=== PATIENT | male | born 1980 | race Caucasian/White ===

== ENCOUNTER 2018-07-11 13:59 | Emergency (ER) | payer OTHER ==
[~2018-07-11] VITALS: Ht 172.7 cm; Wt 79.4 kg
[2018-07-11] MEDS ORDERED: B/P MED (14:08)
[2018-07-11] MEDS ORDERED: DICYCLOMINE HCL LIQ 10 MG/5 ML UDC PO ONE (14:15)
[2018-07-11] MEDS ORDERED: MAG HYDROX/AL HYDROX/SIMETH 30 ML LIQUID UDC PO ONE (14:15)
[2018-07-11] MEDS ORDERED: DICYCLOMINE HCL LIQ 10 MG/5 ML UDC ONE (14:19)
[2018-07-11] MEDS ORDERED: MAG HYDROX/AL HYDROX/SIMETH 30 ML LIQUID UDC ONE (14:19)
--- NOTE | 2018-07-11 14:53 | NUR ---
Patient is resting comfortably on gurney. PATIENT IS PAIN FREE AT THIS TIME. Patient discharged to home in stable conditon. Written and verbal after care instructions given to patient. Patient verbalizes understanding of instructions.
== END 2018-07-11 14:54 | disposition home or self-care (01) ==
LOC: ER 13:59
DX: R07.89 Other chest pain (principal)
CPT/HCPCS: 36415; 70030-TC; 93005; A4663

== ENCOUNTER 2018-10-07 12:20 | Emergency (ER) | payer OTHER ==
[~2018-10-07] VITALS: Ht 170.2 cm; Wt 81.6 kg
[~2018-10-07 12:20] MED LIST: B/P MED
--- NOTE | 2018-10-07 12:50 | NUR ---
PT IS IN ROOM #2B. DR PATTEN EVALUATED THE PT.
[2018-10-07 12:59] LABS: BASOPHILS # (AUTO) 0.1 K/uL (0.0-8.0); BASOPHILS % (AUTO) 0.6 % (0.0-2.0); EOSINOPHILS # (AUTO) 0.1 K/uL (0.0-0.7); EOSINOPHILS % (AUTO) 1.5 % (0.0-7.0); HEMATOCRIT 47.9 % (36.7-47.1); HEMOGLOBIN 16.6 g/dL (12.5-16.3); LYMPHOCYTES # (AUTO) 3.3 K/uL (20.0-40.0); MEAN CORPUSCULAR HEMOGLOBIN 28.9 uug (23.8-33.4); MEAN CORPUSCULAR HGB CONC 35 g/dL (32.5-36.3); MEAN CORPUSCULAR VOLUME 83.4 fL (73.0-96.2); MONOCYTES # (AUTO) 0.7 K/uL (2.0-10.0); MONOCYTES % (AUTO) 7.7 % (0.0-11.0); NEUTROPHILS # (AUTO) 5.2 K/uL (1.8-8.9); NEUTROPHILS % (AUTO) 55.2 % (38.5-71.5); PLATELET COUNT (AUTO) 245 K/uL (152-348); RED BLOOD CELL COUNT(AUTO) 5.74 MIL/uL (4.06-5.63); WHITE BLOOD COUNT (AUTO) 9.3 K/uL (3.6-10.2)
[2018-10-07 13:04] LABS: CREATININE 0.9 mg/dL (0.6-1.3); POTASSIUM 3.8 mmol/L (3.5-5.1)
--- NOTE | 2018-10-07 16:52 | NUR ---
PT WAS D/C'd TO HOME. D/C INSTRUCTIONS GIVEN TO THE PT. PT DENIES PAIN. NO S/S OF ACUTE DISTRESS AT THIS TIME.
[2018-10-07 17:04] VITALS: BP 131/75
== END 2018-10-07 17:06 | disposition home or self-care (01) ==
LOC: ER 12:20
DX: R00.2 Palpitations (principal); R42 Dizziness and giddiness; F17.290 Nicotine dependence, other tobacco product, uncomplicated
CPT/HCPCS: 36415; 70030-TC; 71045; 85025; 93005; A4663

== ENCOUNTER 2020-02-02 18:30 | Emergency (ER) | payer OTHER ==
[~2020-02-02] VITALS: Ht 165.1 cm; Wt 90.7 kg
[2020-02-02] MEDS ORDERED: TETRACAINE HCL 0.5% OPHT DROP 2 ML BOTTLE ONE (18:52)
[2020-02-02] MEDS ORDERED: FLUORESCEIN SODIUM 1 MG STRIP ONE (18:52)
[2020-02-02] MEDS ORDERED: TETRACAINE HCL 0.5% OPHT DROP 2 ML BOTTLE OP ONE (19:15)
[2020-02-02] MEDS ORDERED: FLUORESCEIN SODIUM 1 MG STRIP OP ONE (19:15)
--- NOTE | 2020-02-02 19:31 | NUR ---
PATIENT SEEN BY DR PAZ FOR EYE IRRITATION
[2020-02-02 19:59] VITALS: BP 127/81
--- NOTE | 2020-02-02 19:59 | NUR ---
Patient discharged to home in stable condition. Written and verbal after care instructions given. Patient verbalizes understanding of instructions. Stressed follow up or return to ER for worsening s/s. Patient ambulated with stable gait.
== END 2020-02-02 20:01 | disposition home or self-care (01) ==
LOC: ER 18:30
DX: S05.01XA Injury of conjunctiva and corneal abrasion without foreign body, right eye, initial encounter (principal); X58.XXXA Exposure to other specified factors, initial encounter; Y93.H3 Activity, building and construction; Y92.89 Other specified places as the place of occurrence of the external cause; F17.200 Nicotine dependence, unspecified, uncomplicated
CPT/HCPCS: A4663

== ENCOUNTER 2021-11-05 18:34 | Emergency (ER) | payer SELFPAY ==
--- NOTE | 2021-11-05 19:27 | NUR ---
PT left W/O being triaged.
== END 2021-11-05 19:28 | disposition left against medical advice (07) ==
LOC: ER 18:37
DX: Z53.21 Procedure and treatment not carried out due to patient leaving prior to being seen by health care provider (principal)

== ENCOUNTER 2024-04-29 22:02 | Emergency (ER) | payer MEDICAID, MEDICARE, OTHER ==
[~2024-04-29] VITALS: Ht 172.7 cm; Wt 89.8 kg
[2024-04-29] MEDS ORDERED: METO-356 PO (22:26)
[2024-04-29] MEDS ORDERED: ATOR10TA PO (22:26)
[2024-04-29 23:18] LABS: BASOPHILS % (AUTO) 0.5 % (0.0-2.0); EOSINOPHILS # (AUTO) 0.2 K/uL (0.0-0.7); EOSINOPHILS % (AUTO) 1.9 % (0.0-7.0); HEMATOCRIT 42.7 % (36.7-47.1); HEMOGLOBIN 14.7 g/dL (12.5-16.3); LYMPHOCYTES # (AUTO) 3.9 K/uL (0.8-4.8); LYMPHOCYTES % (AUTO) 42.5 % (20.5-51.5); MEAN CORPUSCULAR HEMOGLOBIN 28.7 uug (23.8-33.4); MEAN CORPUSCULAR HGB CONC 34 g/dL (32.5-36.3); MEAN CORPUSCULAR VOLUME 83.3 fL (73.0-96.2); MONOCYTES # (AUTO) 0.5 K/uL (0.1-1.30); MONOCYTES % (AUTO) 5.9 % (0.0-11.0); NEUTROPHILS # (AUTO) 4.6 K/uL (1.8-8.9); NEUTROPHILS % (AUTO) 49.2 % (38.5-71.5); PLATELET COUNT (AUTO) 249 K/uL (152-348); RED BLOOD CELL COUNT(AUTO) 5.12 MIL/uL (4.06-5.63); RED CELL DISTRIBUTION WIDTH 12.5 % (12.1-16.2); WHITE BLOOD COUNT (AUTO) 9.3 K/uL (3.6-10.2)
[2024-04-29 23:19] LABS: DIFFERENTIAL COMMENT 1
[2024-04-29 23:27] LABS: CALCIUM 9.2 mg/dL (8.5-10.1); CARBON DIOXIDE 30 mmol/L (21-32); CHLORIDE 107 mmol/L (98-107); CREATININE 0.9 mg/dL (0.6-1.3); GLUCOSE 101 mg/dL (74-106); POTASSIUM 4.3 mmol/L (3.5-5.1); SODIUM SERUM 143 mmol/L (136-145); UREA NITROGEN, BLOOD 22 mg/dL (7-18)
[2024-04-29 23:32] LABS: *BILIRUBIN,URIN NEGATIVE (NEGATIVE); *BLOOD, URINE NEGATIVE (NEGATIVE); *CLARITY,URINE CLEAR (CLEAR); *COLOR,URINE YELLOW (YELLOW); *KETONES,URINE NEGATIVE (NEGATIVE); *PROTEIN,URINE NEGATIVE (NEGATIVE); *UROBILINOGEN,URINE 0.2 E.U./dl (NORMAL); LEUKOCYTE ESTERASE ,URINE NEGATIVE (NEGATIVE); NITRITE, URINE NEGATIVE (NEGATIVE); UGLUCOSE NEGATIVE (NEGATIVE)
[2024-04-29 23:35] LABS: ALANINE AMINOTRANSFERASE 26 U/L (16-63); ALKALINE PHOSPHATASE 93 U/L (50-136); ASPARTATE AMINOTRANSFERASE 13 U/L (15-37); BILIRUBIN,DIRECT 0.1 mg/dL (0.0-0.2); BILIRUBIN,TOTAL 0.3 mg/dL (0.2-1.0); LIPASE 70 U/L (16-77); TOTAL PROTEIN, SERUM 7.2 g/dL (6.4-8.2)
[2024-04-30] MEDS ORDERED: KETOROLAC TROMETHAMINE 30 MG INJ IM ONE (00:45)
[2024-04-30] MEDS ORDERED: MAG HYDROX/AL HYDROX/SIMETH 30 ML LIQUID UDC ONE (00:55)
[2024-04-30] MEDS: MAG HYDROX/AL HYDROX/SIMETH 30 ML LIQUID UDC PO ONE (00:58)
[2024-04-30] MEDS ORDERED: IBUP-1957 PO (01:01)
[2024-04-30] MEDS ORDERED: SUCR1ORA4 PO (01:01)
[2024-04-30 01:07] VITALS: BP 140/92; TEMP 97.9; O2SAT 98
== END 2024-04-30 01:11 | disposition home or self-care (01) ==
LOC: ER 22:02
DX: R10.13 Epigastric pain (principal); R07.89 Other chest pain; E78.5 Hyperlipidemia, unspecified; F17.200 Nicotine dependence, unspecified, uncomplicated; I11.9 Hypertensive heart disease without heart failure; Z79.899 Other long term (current) drug therapy; Z87.19 Personal history of other diseases of the digestive system
CPT/HCPCS: 36415; 71045; 83690; 84484; 85025; 85730; A4606; A4663